=== PATIENT | male | born 1985 | race African-American/Black ===

== ENCOUNTER 2020-08-26 18:33 | Emergency (ER) | payer SELFPAY ==
[2020-08-26] VITALS (17 sets, daily range): BP systolic 102–136; BP diastolic 58–95; PULSE 62–81; RESP 13–26; TEMP 36.7–36.9; O2SAT 99–100
--- NOTE | ~2020-08-26 | XR_ITS ---
EXAMINATION: XR chest 2V EXAM DATE: 08/26/2020 19:10 INDICATION: Right-sided chest pain for one day. Cough for several months. TECHNIQUE: Frontal and lateral projections of the chest obtained and reviewed. There is no prior christ dy for comparison. FINDINGS: Lungs are hyperinflated. The lungs are clear. There are no pleural effusions. The cardio mediastinal silhouette is within normal limits. There is no pneumothorax suspected. The bones and s oft tissues are unremarkable. IMPRESSION: 1. No acute cardiopulmonary findings. 2. Hyperinflation. Reviewed, dictated and finalized at location A.
--- NOTE | 2020-08-26 18:35 | ECG_ITS ---
Measurements Intervals [place] Rate: 63 P: 81 NH: 168 QRS: 62 QRSD: 93 T: 71 QT: 377 QTc: 388 Interpretive Statements SINUS RHYTHM POSSIBLE RIGHT ATRIAL ENLARGEMENT LEFT ATRIAL ENLARGEMENT INCOMPLETE RIGHT BUNDLE BRANCH BLOCK BORDERLINE ECG Electronically Signed On 08-26-2020 19:53:16 CDT by James Elise D.O.
[2020-08-26 19:26] LABS: Basophils Percent Auto 0.4 % (0.2-1.2); Eosinophils Absolute Auto 0.2 K/mm3 (0-0.3); Eosinophils Percent Auto 3.1 % (0-4.4); Hematocrit 44.9 % (42.0-52.0); Hemoglobin 15.2 g/dL (14.0-18.0); Immature Granulocyte Absolute 0.02 K/mm3 (0.00-0.031); Immature Granulocyte Percent A 0.3 % (0-0.5); Lymphocytes Absolute Auto 1.55 K/mm3 (0.9-3.2); Lymphocytes Percent Auto 20.6 % (18.3-44.2); Mean Corpuscular HGB Conc 33.9 g/dl (32-36); Mean Corpuscular Hemoglobin 31.3 pg (26-34); Mean Corpuscular Volume 92.6 fl (80-100); Mean Platelet Volume 10.4 fl (7.4-10.4); Monocytes Absolute Auto 0.9 K/mm3 (0.1-0.6); Monocytes Percent Auto 12.2 % (2.6-8.5); Neutrophils Absolute Auto 4.8 K/mm3 (1.3-6.7); Neutrophils Percent Auto 63.4 % (45.5-73.1); Platelet Count Result 338 k/mm3 (150-375); Red Blood Count 4.85 M/mm3 (4.6-6.20); Red Cell Distribution Width 12.3 % (11.5-14.5); White Blood Count 7.5 K/mm3 (4.5-10.0)
[2020-08-26 19:40] LABS: Anion Gap 11 mmol/L (8-16); Blood Urea Nitrogen 7 mg/dL (9-20); Calcium 9.5 mg/dL (8.4-10.2); Carbon Dioxide 28 mmol/L (22-30); Chloride 100 mmol/L (98-107); Estimated CRCL calculation 102 ml/min; Estimated Glomerular Filt Rate > 60; Glucose 96 mg/dL (75-110); Potassium 3.6 mmol/L (3.4-5.0); Sodium 139 mmol/L (137-145)
[2020-08-26 19:42] LABS: INR 1.1; Prothrombin Time 13.6 Seconds (11.1-14.7)
[2020-08-26 19:52] LABS: Troponin I < 0.012 ng/mL (0.000-0.034)
--- NOTE | 2020-08-26 22:21 | ED.CHESTPAIN ---
HPI - Chest Pain General Chief Complaint: Chest Pain Stated Complaint: CP X TODAY Time Seen by Provider: 08/26/20 21:46 Source: patient and RN notes reviewed Mode of arrival: ambulatory Limitations: no limitations History of Present Illness HPI narrative: This is a 35 year old male who presents for evaluation of right medial chest discomfort. He states this discomfort started 15 hours prior to arrival while he was driving. He barely feels the discomfort unless he takes a deep breath. He denies fever, chills, sob of breath. He does reports cough for 2 weeks. He denies history of PE, DVT. Denies leg swelling or calf pain. Related Data Home Medications Medication Instructions Recorded Confirmed No Home Medications 08/26/20 08/26/20 Allergies Allergy/AdvReac Type Severity Reaction Status Date / Time No Known Allergies Allergy Verified 08/26/20 21:14 Review of Systems Review of Systems: All systems reviewed & are unremarkable except as noted in HPI and below Constitutional: Constitutional: Denies chills and Denies fever(s) Cardiovascular: Cardiovascular: Reports chest pain Respiratory: Respiratory: Reports cough and Denies dyspnea Gastrointestinal: Gastrointestinal: Denies abdominal pain, Denies nausea and Denies vomiting Neurologic: Denies dizziness and Denies weakness PMFSH Past Medical History Medical History (Updated 08/27/20 @ 00:00 by Curtis Fox) Patient denies medical problems Surgical History Surgical History (Updated 08/26/20 @ 22:22 by Lily Uriarte MD) No pertinent past surgical history Social History Social History (Updated 08/26/20 @ 22:23 by Lily Uriarte MD) Additional smoking assessment comments: smokes hooka Alcohol intake: never Substance use: never Gender identity (if verbalized by the patient): Male Exam Const: General: no acute distress and alert Orientation/consciousness: patient oriented x3 Eyes: EOM: EOMs intact bilaterally Chest: Chest palpation & inspection: normal inspection of the chest and no tenderness Resp: Effort & Inspection: normal respiratory effort and no retractions Auscultation: clear to auscultation bilaterally Cardio: Rate: regular rate Rhythm: regular rhythm Heart sounds: no murmurs GI: GI Palp: Yes Soft to palpation, No Tenderness to palpation present (GI) and No Guarding due to palpation present (GI) Auscultation: normal bowel sounds Skin: General skin exam: normal color Rashes: no rashes Neuro: General: patient oriented x3, moves all extremities and CN's II-XI intact bilaterally Extrem: General: normal to inspection and no pedal edema Psych: Mental Status: mental status grossly normal Affect: normal affect Course Reevaluation(s) Reevaluation #1: Patient is comfortable with no complaints. His pain is atypical. d dimer negative. He is stable for discharge Date: 08/26/20 Time: 23:08 Vital Signs Vital signs: Vital Signs Temperature 98.1 F 08/26/20 19:10 Pulse Rate 68 08/26/20 19:10 Respiratory Rate 18 08/26/20 19:10 Blood Pressure 131/77 08/26/20 19:10 Pulse Oximetry 100 08/26/20 19:10 Temperature 98.4 F 08/26/20 20:21 Pulse Rate 64 08/26/20 23:16 Respiratory Rate 21 H 08/26/20 23:16 Blood Pressure 123/95 H 08/26/20 23:16 Pulse Oximetry 99 08/26/20 23:16 MDM - Chest Pain Lab Data Attestation: I reviewed the patient's lab results. Result diagrams: 08/26/20 19:18 08/26/20 19:18 Labs: Lab Results 08/26/20 08/26/20 08/26/20 Range/Units 19:18 19:18 19:18 WBC 7.5 (4.5-10.0) K/mm3 RBC 4.85 (4.6-6.20) M/mm3 Hgb 15.2 (14.0-18.0) g/dL Hct 44.9 (42.0-52.0) % MCV 92.6 (80-100) fl MCH 31.3 (26-34) pg MCHC 33.9 (32-36) g/dl RDW 12.3 (11.5-14.5) % Plt Count 338 (150-375) k/mm3 MPV 10.4 (7.4-10.4) fl Immature Gran % (Auto) 0.3 (0-0.5) % Neut % (Auto) 63.4
[2020-08-26] MEDS: IBUPROFEN 600 MG TABLET PO (22:32)
[2020-08-26 22:43] LABS: Troponin I < 0.012 ng/mL (0.000-0.034)
[2020-08-26 22:55] LABS: D Dimer 0.29 ug/mL (<0.48)
== END 2020-08-26 23:37 | disposition home or self-care (01) ==
PROVIDERS: Emergency Medicine; Emergency Provider General Practice
DX: R07.89 Other chest pain (principal)
CPT/HCPCS: 36415; 71046; 80048; 84484; 85025; 85380; 85610; 85730; 93005; 99284; A9270